=== PATIENT | female | born 2000 | race African-American/Black ===

== ENCOUNTER 2024-08-27 00:51 | Emergency (ER) | payer SELFPAY ==
[2024-08-27] MEDS ORDERED: PHENYTOIN SODIUM 250 MG/5 ML VIAL IVPB ONE (01:41)
[2024-08-27 01:42] VITALS: BMI 24.0
[2024-08-27] MEDS ORDERED: ACETAMINOPHEN INJECTION 100 ML ONE (02:05)
[2024-08-27 02:07] LABS: ABSOLUTE IMMATURE GRANULOCYTES 0.01 x10^3/uL (0.0-0.031); BASOPHILS # 0.02 x10^3/uL (0.01-0.08); EOSINOPHIL % 0.7 % (0.7-5.8); EOSINOPHILS # 0.04 x10^3/uL (0.04-0.36); HEMATOCRIT 30.4 % (34.1-44.9); HEMOGLOBIN 10.4 g/dL (11.2-15.7); MCHC 34.2 g/dl (32.2-35.5); MEAN CELL VOLUME 75.2 fl (79.4-94.8); MEAN PLT VOLUME 10.9 fl (9.4-12.3); MONOCYTE # 0.49 x10^3/uL (0.24-0.86); MONOCYTE % 8.1 % (4.7-12.5); PLATELET COUNT 370 x10^3/uL (182-369); RDW 15.3 % (12.1-16.5)
[2024-08-27] MEDS: SODIUM CHLORIDE 0.9% 500 ML INFUS.BAG IV ONE (02:15)
[2024-08-27] MEDS: ACETAMINOPHEN 1000 MG/100 ML BAG IVPB ONE (02:15)
[2024-08-27] MEDS ORDERED: FOSPHENYTOIN SODIUM 1,000 MG in SODIUM CHLORIDE 100 ML IVPB ONE (02:26)
[2024-08-27 02:35] VITALS: TEMP 98.6
[2024-08-27 02:53] LABS: POTASSIUM 4.8 mmol/L (3.5-5.1)
[2024-08-27 02:55] LABS: ALBUMIN 3.8 g/dl (3.4-5.0); CALCIUM 9.1 mg/dL (8.5-10.1)
[2024-08-27 02:56] LABS: BLOOD UREA NITROGEN 15.4 mg/dL (7-18); MAGNESIUM 1.9 mg/dL (1.8-2.4)
[2024-08-27 02:58] LABS: CREATININE 0.8 mg/dL (0.55-1.3)
[2024-08-27 03:00] LABS: BILIRUBIN,TOTAL 0.2 mg/dL (0.2-1); TOT PROT 7.9 g/dl (6.4-8.2)
[2024-08-27] MEDS: WATER IVPB ONE (03:09)
[2024-08-27] MEDS: DEXTROSE 5% IVPB ONE (03:09)
[2024-08-27] MEDS: FOSPHENYTOIN SODIUM IVPB ONE (03:09)
[2024-08-27] MEDS ORDERED: DEXAMETHASONE SOD PHOSPHATE 10 MG/1 ML VIAL ONE (03:20)
[2024-08-27] MEDS: DEXAMETHASONE SOD PHOSPHATE 10 MG/1 ML VIAL IVPUSH ONE (03:28)
[2024-08-27 05:58] VITALS: BP 102/62; PULSE 59; RESP 14
[2024-08-27 06:01] LABS: PH,URINE 6.5 (5.0-8.0); URINE APPEARANCE CLOUDY; URINE BILIRUBIN NEGATIVE (NEGATIVE); URINE COLOR YELLOW; URINE GLUCOSE (UA) NEGATIVE (NEGATIVE); URINE KETONE TRACE (NEGATIVE); URINE LEUK ESTERASE NEGATIVE (NEGATIVE); URINE NITRITE NEGATIVE (NEGATIVE); URINE PROTEIN NEGATIVE (NEGATIVE)
== END 2024-08-27 08:00 | disposition home or self-care (01) ==
LOC: JER 00:51
PROC: 3E033NZ Introduction of Analgesics, Hypnotics, Sedatives into Peripheral Vein, Percutaneous Approach (ICD-10-PCS; principal; 2024-08-27)
PROC: 3E033GC Introduction of Other Therapeutic Substance into Peripheral Vein, Percutaneous Approach (ICD-10-PCS; 2024-08-27)
PROC: 3E033GC Introduction of Other Therapeutic Substance into Peripheral Vein, Percutaneous Approach (ICD-10-PCS; 2024-08-27)
DX: G40.909 Epilepsy, unspecified, not intractable, without status epilepticus (principal); R53.1 Weakness; R20.0 Anesthesia of skin
CPT/HCPCS: 36415; 70450-TC; 71045-TC-FY; 72125-TC; 80053; 81003; 82962; 83735; 84703; 85025; 87086; 87186; 93005; 93010; 99285-25; J0131; J1100